=== PATIENT | female | born 1950 | race Caucasian/White ===

== ENCOUNTER 2017-05-17 12:48 | Emergency (ER) | payer BC, OTHER ==
[~2017-05-17] VITALS: Ht 162.6 cm; Wt 54.0 kg
[~2017-05-17 12:48] MED LIST: ASPI-892; BNZ10T; CARV6.25; HYDR1TAB PO; LOVA10TA; [UNRECOGNIZED DRUG - CODE]
[2017-05-17 13:06] LABS: BASOPHILS # (AUTO) 0.1 10^3/uL (0.0-0.1); BASOPHILS % (AUTO) 1 % (0-10); EOSINOPHILS # (AUTO) 0.2 10^3/uL (0.0-0.3); EOSINOPHILS % (AUTO) 4 % (0-10); LYMPHOCYTES % (AUTO) 39 % (12-44); MEAN CORPUSCULAR HEMOGLOBIN 31 PG (25-34); MEAN CORPUSCULAR HGB CONC 32 G/DL (32-36); MEAN CORPUSCULAR VOLUME 94 FL (80-99); MEAN PLATELET VOLUME 9.8 FL (7.4-10.4); MONOCYTES # (AUTO) 0.5 X 10^3 (0.0-1.0); MONOCYTES % (AUTO) 9 % (0-12); NEUTROPHILS # (AUTO) 2.5 X 10^3 (1.8-7.8); NEUTROPHILS % (AUTO) 48 % (42-75); PLATELET COUNT 235 10^3/uL (130-400); RED CELL DISTRIBUTION WIDTH 12.9 % (10.0-14.5); WHITE BLOOD COUNT 5.1 10^3/uL (4.3-11.0)
[2017-05-17 13:22] LABS: ALANINE AMINOTRANSFERASE 20 U/L (0-55); ALBUMIN 4.1 GM/DL (3.2-4.5); ANION GAP 11 MMOL/L (5-14); ASPARTATE AMINO TRANSFERASE 27 U/L (5-34); BILIRUBIN,TOTAL 0.5 MG/DL (0.1-1.0); BLOOD UREA NITROGEN 19 MG/DL (7-18); BUN/CREATININE RATIO 23; CALCIUM 10.7 MG/DL (8.5-10.1); CARBON DIOXIDE 22 MMOL/L (21-32); CHLORIDE 105 MMOL/L (98-107); CREATININE SERUM 0.82 MG/DL (0.60-1.30); GFR ESTIMATED > 60; GLUCOSE 87 MG/DL (70-105); POTASSIUM 4.5 MMOL/L (3.6-5.0); SODIUM 138 MMOL/L (135-145); TOTAL PROTEIN 7.4 GM/DL (6.4-8.2)
[2017-05-17 13:28] LABS: TROPONIN I < 0.30 NG/ML (<0.30)
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
[2017-05-17 14:33] VITALS: BP 136/84
== END 2017-05-17 14:33 | disposition home or self-care (01) ==
LOC: EDUNIT# 12:48 → ER 12:50
DX: R00.8 Other abnormalities of heart beat (principal); I10 Essential (primary) hypertension; E78.00 Pure hypercholesterolemia, unspecified; Z79.82 Long term (current) use of aspirin; Z79.899 Other long term (current) drug therapy
CPT/HCPCS: 36415; 80053; 84484; 85025; 93005

== ENCOUNTER → 2017-05-18 | Outpatient (CLI) | payer BC ==
--- NOTE | 2017-05-18 15:09 | Diagnostic Imaging Report ---
PROCEDURE: CT head without contrast. TECHNIQUE: Multiple contiguous axial images were obtained through the brain without the use of intravenous contrast. INDICATION: Memory loss. COMPARISON: None. FINDINGS: No intracranial hemorrhage, mass effect, hydrocephalus or extra-axial fluid collections. No CT evidence of acute infarction. Moderate generalized cerebral and cerebellar parenchymal volume loss. Osseous structures are intact. The visualized paranasal sinuses and mastoids are clear. IMPRESSION: No acute intracranial CT findings. Dictated by: Dictated on workstation # [id number]
== END ==
LOC: RAD 14:18
PROVIDERS: ATTEND Nurse Practitioner Family
DX: R41.3 Other amnesia (principal)
CPT/HCPCS: 70450

== ENCOUNTER 2017-06-01 12:37 | Outpatient (RCR) | payer BC | END 2017-08-04 | disposition home or self-care (01) | LOC: CARD 12:37 | PROVIDERS: ATTEND Internal Medicine Cardiovascular Disease | DX: I49.9 Cardiac arrhythmia, unspecified (principal); Z86.79 Personal history of other diseases of the circulatory system | CPT/HCPCS: 93225; 93226 ==

== ENCOUNTER → 2017-06-01 | Outpatient (CLI) | payer BC | LOC: CARD 12:35 | PROVIDERS: ATTEND Internal Medicine Cardiovascular Disease | DX: I49.9 Cardiac arrhythmia, unspecified (principal); Z86.79 Personal history of other diseases of the circulatory system | CPT/HCPCS: 93306 ==

== ENCOUNTER → 2018-12-06 | Outpatient (CLI) | payer BC, MEDICARE ==
--- NOTE | 2018-12-06 15:32 | Diagnostic Imaging Report ---
INDICATION: Abdominal and back pain. COMPARISON: None. FINDINGS: KUB and upright views of the abdomen demonstrate mild constipation without obstruction or ileus. There is no free air. Osseous structures are age-appropriate. There are no abnormal calcifications seen. IMPRESSION: Mild constipation without obstruction, ileus or free air. Dictated by: Dictated on workstation # [id number]
--- NOTE | 2018-12-06 15:33 | Diagnostic Imaging Report ---
INDICATION: Back pain. COMPARISON: None. FINDINGS: Three views of the lumbar column demonstrate normal alignment. There is no subluxation or fracture. Mild diffuse degenerative disc disease and facet joint arthropathy are seen. The SI joints are symmetric. There is some slight constipation. IMPRESSION: 1. Mild diffuse degenerative disc disease and facet joint arthropathy. 2. No traumatic malalignment or fracture. 3. Constipation. Dictated by: Dictated on workstation # [id number]
== END ==
LOC: RAD 14:55
PROVIDERS: ATTEND Family Medicine
DX: M51.36 Other intervertebral disc degeneration, lumbar region (principal); M46.86 Other specified inflammatory spondylopathies, lumbar region; K59.00 Constipation, unspecified
CPT/HCPCS: 72100; 74019

== ENCOUNTER → 2018-12-12 | Outpatient (CLI) | payer MEDICARE, OTHER ==
--- NOTE | 2018-12-12 09:37 | Diagnostic Imaging Report ---
PROCEDURE: US Gallbladder. TECHNIQUE: Multiple real-time grayscale images were obtained over the right upper quadrant in various projections. INDICATION: Generalized abdominal pain with nausea. FINDINGS: The liver is normal in size at 12 cm. Liver demonstrates homogeneous echotexture. No discrete liver mass is identified. The portal vein is patent and shows normal direction of flow. Gallbladder is without stones or sludge. No wall thickening or biliary ductal dilatation is seen. Pancreas is obscured by bowel gas. Right kidney is unremarkable. There is no ascites. IMPRESSION: No evidence of cholelithiasis or acute cholecystitis. Dictated by: Dictated on workstation # [id number]
== END ==
LOC: RAD 08:55
PROVIDERS: ATTEND Nurse Practitioner Family
DX: R10.84 Generalized abdominal pain (principal); R11.0 Nausea
CPT/HCPCS: 76705

== ENCOUNTER → 2019-01-01 | Outpatient (CLI) | payer MEDICARE, OTHER ==
--- NOTE | 2019-01-01 13:22 | Diagnostic Imaging Report ---
INDICATION: Fall, right rib pain. COMPARISON: None. FINDINGS: Three views of the right ribs demonstrate no osseous lesion or acute fracture. There is no pneumothorax or effusion. IMPRESSION: No rib fracture identified. Dictated by: Dictated on workstation # [id number]
--- NOTE | 2019-01-01 13:24 | Diagnostic Imaging Report ---
INDICATION: Fall, left foot pain. COMPARISON: None. FINDINGS: Three views of the left foot demonstrate diffuse osteopenia. There is no fracture or dislocation. Articular surfaces are age-appropriate. No foreign body is seen. IMPRESSION: No fracture or dislocation. Dictated by: Dictated on workstation # [id number]
--- NOTE | 2019-01-01 13:26 | Diagnostic Imaging Report ---
INDICATION: Left foot and ankle pain, fall. COMPARISON: None. Three views of the left ankle demonstrate diffuse osteopenia. There is no fracture dislocation. Articular surfaces are age-appropriate. No foreign body seen. IMPRESSION: No fracture dislocation. Dictated by: Dictated on workstation # [id number]
== END ==
LOC: RAD 12:29
PROVIDERS: ATTEND Nurse Practitioner Family
DX: M25.572 Pain in left ankle and joints of left foot (principal); M79.672 Pain in left foot; R07.81 Pleurodynia; W19.XXXA Unspecified fall, initial encounter
CPT/HCPCS: 71100; 73610; 73630

== ENCOUNTER → 2019-11-28 | Outpatient (CLI) | payer OTHER ==
--- NOTE | 2019-11-28 17:34 | Diagnostic Imaging Report ---
EXAMINATION: Lumbosacral spine 2 or 3 views. HISTORY: Low back pain. COMPARISON: 07/24/2019. FINDINGS: There may be a mild compression fracture of L5 posteriorly. Alignment is normal. Normal aorta is calcified. IMPRESSION: 1. Likely mild posterior compression fracture of L5 with minimal height loss. Dictated by: Dictated on workstation # [id number]
== END ==
LOC: RAD 15:28
PROVIDERS: ATTEND Nurse Practitioner Family
DX: M54.5 Low back pain (principal)
CPT/HCPCS: 72100

== ENCOUNTER → 2019-12-22 | Outpatient (CLI) | payer MEDICARE, OTHER ==
--- NOTE | 2019-12-22 16:44 | Diagnostic Imaging Report ---
INDICATION: Screening. TECHNIQUE: The current study was also evaluated with a Computer Aided Detection (CAD) system. 3D Tomographic imaging was also performed. COMPARISON: No prior examinations are available for comparison. FINDINGS: There are scattered fibroglandular densities bilaterally. There are a few benign type calcifications. There is no dominant mass, spiculated lesion, or suspicious calcification identified. The skin, nipples, and axillae are unremarkable. IMPRESSION: Benign findings. ACR BI-RADS Category 2: Benign findings. Result letter will be mailed to the patient. Note: At least 10% of breast cancer is not imaged by mammography. Dictated by: Dictated on workstation # [id number]
== END ==
LOC: RAD 15:12
PROVIDERS: ATTEND Nurse Practitioner Family
DX: Z12.31 Encounter for screening mammogram for malignant neoplasm of breast (principal)
CPT/HCPCS: 77067

== ENCOUNTER → 2020-05-11 | Outpatient (CLI) | payer MEDICARE ==
[2020-05-11 16:03] LABS: BASOPHILS % (AUTO) 1 % (0-10); EOSINOPHILS % (AUTO) 1 % (0-10); HEMATOCRIT 40 % (35-52); HEMOGLOBIN 13.1 G/DL (11.5-16.0); LYMPHOCYTES % (AUTO) 24 % (12-44); MEAN CORPUSCULAR HEMOGLOBIN 31 PG (25-34); MEAN CORPUSCULAR HGB CONC 33 G/DL (32-36); MEAN CORPUSCULAR VOLUME 94 FL (80-99); MEAN PLATELET VOLUME 9.6 FL (7.4-10.4); MONOCYTES # (AUTO) 0.4 X 10^3 (0.0-1.0); MONOCYTES % (AUTO) 8 % (0-12); NEUTROPHILS % (AUTO) 67 % (42-75); PLATELET COUNT 184 10^3/uL (130-400); RED CELL DISTRIBUTION WIDTH 13.1 % (10.0-14.5); WHITE BLOOD COUNT 4.4 10^3/uL (4.3-11.0)
[2020-05-11 16:18] LABS: ALANINE AMINOTRANSFERASE 19 U/L (0-55); ALBUMIN 3.9 GM/DL (3.2-4.5); ALKALINE PHOSPHATASE 79 U/L (40-136); BILIRUBIN,TOTAL 0.5 MG/DL (0.1-1.0); BUN/CREATININE RATIO 20; CALCIUM 10.9 MG/DL (8.5-10.1); CARBON DIOXIDE 26 MMOL/L (21-32); CHLORIDE 102 MMOL/L (98-107); CREATININE SERUM 0.71 MG/DL (0.60-1.30); GFR ESTIMATED > 60; GLUCOSE 95 MG/DL (70-105); POTASSIUM 4.1 MMOL/L (3.6-5.0); SODIUM 135 MMOL/L (135-145); TOTAL PROTEIN 6.6 GM/DL (6.4-8.2)
== END ==
LOC: CARD 15:33
PROVIDERS: ATTEND Nurse Practitioner Family
DX: I10 Essential (primary) hypertension (principal); R00.2 Palpitations; R51 Headache; R55 Syncope and collapse
CPT/HCPCS: 36415; 80053; 84484; 85025; 93005

== ENCOUNTER → 2020-07-29 | Outpatient (CLI) | payer MEDICARE ==
--- NOTE | 2020-07-29 16:25 | Diagnostic Imaging Report ---
INDICATION: R FOOT AND ANKLE SWELLING COMPARISON: None. FINDINGS: 3 views of the right ankle were obtained. There is no acute fracture or dislocation. No focal osseous lesions are seen. The surrounding soft tissue structures are unremarkable. There are no radiopaque foreign bodies. IMPRESSION: 1. No acute fracture or dislocation in the right ankle. Dictated by: Dictated on workstation # [id number]
--- NOTE | 2020-07-29 16:29 | Diagnostic Imaging Report ---
INDICATION: Foot pain status post injury COMPARISON: None. FINDINGS: 3 views of the right foot demonstrate no acute fracture or dislocation. There are no focal osseous lesions. There is no soft tissue swelling. Joint spaces are well maintained. No radiopaque foreign bodies are seen. IMPRESSION: No acute fractures or dislocations of the right foot. Dictated by: Dictated on workstation # [id number]
== END ==
LOC: RAD 15:48
PROVIDERS: ATTEND Nurse Practitioner Family
DX: M79.89 Other specified soft tissue disorders (principal); M25.571 Pain in right ankle and joints of right foot; Z87.828 Personal history of other (healed) physical injury and trauma
CPT/HCPCS: 73610; 73630

== ENCOUNTER → 2020-09-23 | Outpatient (CLI) | payer MEDICARE ==
--- NOTE | 2020-09-23 16:43 | Diagnostic Imaging Report ---
PROCEDURE: MR imaging of the brain without contrast. TECHNIQUE: Multiplanar, multisequence MR imaging of the brain was performed without contrast. DATE: September 23, 2020. COMPARISON: CT head May 18, 2017. HISTORY: 70-year-old female, difficulties with balance. FINDINGS: There is no restricted diffusion. There are no areas of abnormal intracranial susceptibility. The ventricles and CSF spaces are normal in size and configuration for patient age. There is no abnormal extra axial fluid collection. There is no acute intracranial hemorrhage. There is no mass effect or midline shift. There are areas of T2 and FLAIR hyperintense signal in the subcortical and periventricular white matter which do not demonstrate diffusion restriction. There is normal aeration of the visualized paranasal sinuses and mastoid air cells. IMPRESSION: 1. No identified acute intracranial abnormality. 2. Moderate probable changes of chronic small vessel ischemic disease. Dictated by: Dictated on workstation # [id number]
== END ==
LOC: RAD 15:30
PROVIDERS: ATTEND Nurse Practitioner Family
DX: R42 Dizziness and giddiness (principal); R51.9 Headache, unspecified
CPT/HCPCS: 70551

== ENCOUNTER → 2021-01-04 | Outpatient (CLI) | payer MEDICARE ==
--- NOTE | 2021-01-04 11:04 | Diagnostic Imaging Report ---
Indication: Right upper quadrant abdominal pain Gallbladder sonography performed in routine fashion compared to 12/12/18. The liver shows normal echogenicity with no focal lesion. Portal vein is patent with hepatopetal flow. Gallbladder appears unremarkable with no stones or wall thickening. Common duct measured 3 mm. Pancreas appears normal. Visualized portions of the aorta and IVC are normal. Right kidney appears unremarkable measured 8.6 cm in length. There is no ascites. Sonographic Luciano sign was negative. IMPRESSION: Unremarkable gallbladder sonography. No change from 12/12/2018. Dictated by: Dictated on workstation # [id number]
== END ==
LOC: RAD 08:15
PROVIDERS: ATTEND Nurse Practitioner Family
DX: R10.11 Right upper quadrant pain (principal)
CPT/HCPCS: 76705

== ENCOUNTER → 2021-04-07 | Outpatient (CLI) | payer MEDICARE ==
[~2021-04-07] MED LIST changes: +CATHETER FLUSH 10 ML SYR IV PRN
--- NOTE | 2021-04-07 16:23 | Diagnostic Imaging Report ---
INDICATION: Right upper quadrant pain. Patient was administered 5.3 mCi technetium 99m Choletec intravenously and imaging of the abdomen was performed. After 60 minutes patient ingested 1 can of Ensure and ejection fraction was calculated. There is uptake of activity by the liver with prompt excretion of activity into the gallbladder and common duct. Normal passage of activity into the small bowel is identified. Gallbladder ejection fraction is 84%. IMPRESSION: Normal HIDA scan and gallbladder ejection fraction. Dictated by: Dictated on workstation # [id number]
== END ==
LOC: CARD 12:00
PROVIDERS: ATTEND Nurse Practitioner Family
DX: R10.11 Right upper quadrant pain (principal)
CPT/HCPCS: 78227; A9537

== ENCOUNTER 2021-07-20 05:39 | Outpatient (RCR) | payer MEDICARE ==
[~2021-07-20 05:39] MED LIST changes: -CATHETER FLUSH 10 ML SYR IV PRN
== END 2021-10-18 | disposition home or self-care (01) ==
LOC: PREOP 05:39
PROVIDERS: ATTEND Surgery
DX: Z01.818 Encounter for other preprocedural examination (principal)

== ENCOUNTER → 2021-07-27 | Outpatient (CLI) | payer MEDICARE | LOC: CARD 15:20 | PROVIDERS: ATTEND Internal Medicine Cardiovascular Disease | DX: I51.7 Cardiomegaly (principal); I42.9 Cardiomyopathy, unspecified | CPT/HCPCS: 93306 ==

== ENCOUNTER → 2022-02-28 | Outpatient (CLI) | payer MEDICARE ==
--- NOTE | 2022-02-28 15:24 | Diagnostic Imaging Report ---
Indication: Fall one week ago. Time of Exam: 2:21 PM Three views of the left elbow were obtained. Alignment is normal. Joint spaces are well-maintained. No fracture, dislocation or effusion is seen. IMPRESSION: No acute bony abnormality is detected. Dictated by: Dictated on workstation # [id number]
--- NOTE | 2022-02-28 15:26 | Diagnostic Imaging Report ---
Indication: Fall one week ago. Time of Exam: 2:25 PM AP and lateral views of the lumbar spine were obtained. Curvature and alignment are normal. Vertebral body heights are maintained. There is some generalized degenerative disc disease with variable disc space narrowing and marginal spurring. Aorta is heavily calcified. There is lower lumbar facet arthropathy. IMPRESSION: Lumbar spondylosis. No acute fracture is detected. Dictated by: Dictated on workstation # [id number]
--- NOTE | 2022-02-28 15:28 | Diagnostic Imaging Report ---
Indication: Fall with left hip pain. Time of Exam: 2:26 PM An AP view of the pelvis and 2 views left hip were obtained. The femoral acetabular alignment is normal. There is a moderate amount sclerosis involving the left femoral head. There is moderate amount of superior-medial joint space narrowing involving the left hip, as well. No discrete fracture line is identified. Right hip is intact. Rami are intact. SI joints and symphysis are not widened. IMPRESSION: Bilateral hip joint degenerative changes. There is a moderate amount of sclerosis of the left femoral head. The possibility of a healing fracture cannot be entirely excluded although a discrete fracture line is not visualized. Dedicated CT may be useful for further evaluation. Right hip shows moderate degenerative change. Dictated by: Dictated on workstation # [id number]
== END ==
LOC: RAD 13:56
PROVIDERS: ATTEND Family Medicine
DX: M47.816 Spondylosis without myelopathy or radiculopathy, lumbar region (principal); M16.0 Bilateral primary osteoarthritis of hip; W19.XXXA Unspecified fall, initial encounter
CPT/HCPCS: 72100; 73080

== ENCOUNTER → 2022-03-03 | Outpatient (CLI) | payer MEDICARE ==
--- NOTE | 2022-03-03 09:59 | Diagnostic Imaging Report ---
PROCEDURE: CT pelvis without contrast. TECHNIQUE: Multiple contiguous axial images were obtained through the pelvis without the use of intravenous contrast. Sagittal and coronal reformations were performed. Auto Exposure Controls were utilized during the CT exam to meet ALARA standards for radiation dose reduction. INDICATION: Fall. Left hip pain. COMPARISON: 02/28/2022. FINDINGS: A nondisplaced fracture is seen involving the left inferior pubic ramus. No other fractures are seen in the pelvis. No fracture is seen in the proximal femurs bilaterally. No suspicious focal osseous lesions. Advanced degenerative changes are seen in the bilateral femoroacetabular joints with joint space narrowing, subchondral sclerosis, and marginal osteophyte formation. No joint effusions are seen. The included intrapelvic contents demonstrate no acute abnormalities. The surrounding soft tissues are unremarkable. IMPRESSION: 1. Nondisplaced fracture involving the left inferior pubic ramus. No other fractures are identified. If indicated, MRI of the pelvis could be considered to evaluate for additional occult fracture. 2. 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 No evidence of joint effusion. Dictated by: Dictated on workstation # [id number]
== END ==
LOC: RAD 09:30
PROVIDERS: ATTEND Nurse Practitioner Family
DX: S32.592A Other specified fracture of left pubis, initial encounter for closed fracture (principal); M16.0 Bilateral primary osteoarthritis of hip; W19.XXXA Unspecified fall, initial encounter
CPT/HCPCS: 72192

== ENCOUNTER → 2022-03-09 | Outpatient (CLI) | payer MEDICARE ==
--- NOTE | 2022-03-09 12:41 | Diagnostic Imaging Report ---
Indication: Fracture inferior pubic ramus. Time of Exam: 12:05 PM Correlation is made with prior exam from 02/28/2022. Correlation is also made with CT study from 03/03/2022. Femoral acetabular alignments maintained. There continues to be degenerative changes of bilateral hips with joint space narrowing. Sclerosis of the left femoral heads again noted. The nondisplaced fracture of the left inferior pubic ramus is noted and stable. Overall alignment is anatomic. SI joints and symphysis are well-maintained. IMPRESSION: Normal alignment of left inferior pubic ramus fracture when compared with prior CT from 03/03/2022. Dictated by: Dictated on workstation # [id number]
== END ==
LOC: RAD 11:54
PROVIDERS: ATTEND Nurse Practitioner Family
DX: S32.592A Other specified fracture of left pubis, initial encounter for closed fracture (principal); X58.XXXA Exposure to other specified factors, initial encounter
CPT/HCPCS: 72170

== ENCOUNTER → 2022-03-21 | Outpatient (CLI) | payer MEDICARE ==
--- NOTE | 2022-03-21 12:49 | Diagnostic Imaging Report ---
Indication: Pain and swelling to right foot. Comparison with 07/29/2020. FINDINGS: 3 views. There are no fractures or dislocations. Mild arthritic changes noted along inner phalangeal joints and 1st MP joint. No periosteal reactive changes. There are no erosive changes noted. No bony destruction. No soft tissue swelling or foreign bodies noted. IMPRESSION: Mild arthritic changes noted with no acute changes when compared with previous exam. Dictated by: Dictated on workstation # [id number]
== END ==
LOC: RAD 10:19
PROVIDERS: ATTEND Family Medicine
DX: M19.071 Primary osteoarthritis, right ankle and foot (principal)
CPT/HCPCS: 73630

== ENCOUNTER → 2022-05-09 | Outpatient (CLI) | payer MEDICARE ==
--- NOTE | 2022-05-09 12:37 | Diagnostic Imaging Report ---
INDICATION: Postmenopausal screening COMPARISON: None FINDINGS: AP Spine L1-L4: [BMD (g/cm2): 0.750] [T-Score: -3.8] [Z-Score: -1.5] [BMD Previous: na] [BMD % Change: na] LT Hip Neck: [BMD (g/cm2): 0.609] [T-Score: -3.1] [Z-Score: -0.9] LT Hip Total: [BMD (g/cm2):0.554] [T-Score:-3.6] [Z-Score: -1.6] [BMD Previous: na] [BMD % Change: na] RT Hip Neck: [BMD (g/cm2):0.548] [T-Score:-3.5] [Z-Score:-1.3] RT Hip Total: [BMD (g/cm2):0.530] [T-score:-3.8] [Z-Score:-1.8] [BMD Previous:na] [BMD % Change:na] *Indicates significant change from prior examination based on 95% confidence level. World Health Organization criteria for BMD interpretation classify patients as Normal (T-score at or above -1.0), Osteopenic (T-score between -1.0 and -2.5) or Osteoporotic (T-score at or below -2.5). LIMITATIONS AND MODIFICATION: None. FRACTURE RISK (FRAX SCORE): The ten year probability of (%): Major Osteoporotic Fracture: [na] Hip Fracture: [na] IMPRESSION: 1. Osteoporosis. 2. See below National Osteoporosis Foundation guidelines on when to potentially initiate pharmacologic therapy. Based on the National Osteoporosis Foundation Guidelines, pharmacologic treatment should be initiated in any of the following, unless clinical conditions suggest otherwise: * Any patient with prior fragility fracture of the hip or vertebrae. A spine fracture indicates 5X risk for subsequent spine fracture and 2X risk for subsequent hip fracture. * Osteoporosis (T-score <-2.5). * Postmenopausal women and men age 50 and older with low bone mass/osteopenia (T-score between -1.0 and -2.5) by DXA and 10-year major osteoporotic fracture greater than 20% or a 10-year probability of hip fracture greater than 3%. These fracture risks are supplied above in the FRAX score, if applicable. * Clinician judgement and/or patient preferences may indicate treatment for people with 10-year fracture probabilities above or below these levels. Dictated by: Dictated on workstation # [id number]
== END ==
LOC: RAD 10:46
PROVIDERS: ATTEND Nurse Practitioner Family
DX: Z13.820 Encounter for screening for osteoporosis (principal); M81.0 Age-related osteoporosis without current pathological fracture; Z78.0 Asymptomatic menopausal state
CPT/HCPCS: 77080

== ENCOUNTER → 2022-06-07 | Outpatient (CLI) | payer MEDICARE ==
[2022-05-30 09:30] VITALS: BP 113/65
[~2022-06-07] VITALS: Ht 163.8 cm; Wt 49.5 kg
[~2022-06-07] MED LIST changes: +ASPI-1238 PO; +ATOR40TA70 PO; +BENA-3 PO; +CALC600T91 PO; +CHOL500044 PO; +CITA10TA9 PO; +DENOSUMAB 60 MG/1 ML (PROLIA) SQ SCH; +MULT-1136 PO; +VITA1CAP42 PO; +VITAMIN C PO
[2022-06-07 10:55] VITALS: BP 152/85
== END ==
LOC: SDC 05-30 09:24
PROVIDERS: ATTEND Nurse Practitioner Family
DX: M81.0 Age-related osteoporosis without current pathological fracture (principal)
CPT/HCPCS: 96372

== ENCOUNTER 2023-01-03 13:05 | Outpatient (CLI) | payer MEDICARE ==
[~2023-01-03 13:05] MED LIST changes: -DENOSUMAB 60 MG/1 ML (PROLIA) SQ SCH
[2023-01-03 13:30] VITALS: BP 145/82
[2023-01-03] MEDS ORDERED: DENOSUMAB 60 MG/1 ML (PROLIA) SQ ONE (13:30)
== END 2023-01-03 13:40 | disposition home or self-care (01) ==
LOC: SDC 13:05
PROVIDERS: ATTEND Nurse Practitioner Family
DX: M81.0 Age-related osteoporosis without current pathological fracture (principal)
CPT/HCPCS: 96372

== ENCOUNTER → 2023-07-12 | Outpatient (CLI) | payer MEDICARE ==
[~2023-07-12] MED LIST changes: +DENOSUMAB 60 MG/1 ML (PROLIA) SQ SCH
[2023-07-12 10:20] VITALS: BP 144/88
== END ==
LOC: SDC 10:11
PROVIDERS: ATTEND Family Medicine
DX: M81.0 Age-related osteoporosis without current pathological fracture (principal)
CPT/HCPCS: 96372

== ENCOUNTER → 2023-08-28 | Outpatient (CLI) | payer MEDICARE ==
[~2023-08-28] MED LIST changes: -DENOSUMAB 60 MG/1 ML (PROLIA) SQ SCH
--- NOTE | 2023-08-29 08:58 | Diagnostic Imaging Report ---
INDICATION: Routine screening. COMPARISON: 12/22/2019. TECHNIQUE: 2D and 3D bilateral screening mammography was performed with CAD. FINDINGS: Both breasts are heterogeneously dense, limiting the sensitivity of mammography. The parenchymal pattern is stable. No mass or malignant-appearing microcalcifications are seen. The axillae are unremarkable. IMPRESSION: No mammographic features suspicious for malignancy are identified. ACR BI-RADS Category 1: Negative. Result letter will be mailed to the patient. Note: At least 10% of breast cancer is not imaged by mammography. Dictated by: Dictated on workstation # [id number]
== END ==
LOC: RAD 14:22
PROVIDERS: ATTEND Nurse Practitioner Family
DX: Z12.31 Encounter for screening mammogram for malignant neoplasm of breast (principal)
CPT/HCPCS: 77063; 77067